=== PATIENT | male | born 1985 | race Caucasian/White ===

== ENCOUNTER 2025-04-19 13:04 | Inpatient (IN) | payer OTHER ==
[2025-04-19 13:30] VITALS: BMI 29.4
[2025-04-19] MEDS ORDERED: ONDANSETRON *ODT* 4 MG TABLET SL PRN (14:31)
[2025-04-19] MEDS ORDERED: IBUPROFEN 400 MG TABLET (FP) PO PRN (14:31)
[2025-04-19] MEDS ORDERED: BISMUTH SUBSALICYLATE 524 MG/30 ML PO PRN (14:31)
[2025-04-19] MEDS ORDERED: BENZONATATE 200 MG CAPSULE PO PRN (14:31)
[2025-04-19] MEDS ORDERED: NALOXONE (NARCAN) HCL 4 MG/0.1 ML SPRAY NS PRN (14:31)
[2025-04-19] MEDS ORDERED: DICYCLOMINE HCL 10 MG CAPSULE PO PRN (14:31)
[2025-04-19] MEDS ORDERED: NICOTINE POLACRILEX 2 MG LOZENGE BC PRN (14:31)
[2025-04-19] MEDS ORDERED: ACETAMINOPHEN 325 MG TABLET (FP) PO PRN (14:31)
[2025-04-19] MEDS ORDERED: guaiFENesin 600 MG TABLET.ER (FP) PO PRN (14:31)
[2025-04-19] MEDS ORDERED: MAG HYDROX/AL HYDROX/SIMETH 30 ML UNIT-DOSE CUP PO PRN (14:31)
[2025-04-19] MEDS ORDERED: NICOTINE POLACRILEX 2 MG GUM BUC PRN (14:31)
[2025-04-19] MEDS ORDERED: BENZOCAINE/MENTHOL (CHLORASEPTIC ) LOZENGE MM PRN (14:31)
[2025-04-19] MEDS ORDERED: MAGNESIUM HYDROX 2400MG/30ML ORAL SUSPENSION 30 ML CUP PO PRN (14:31)
[2025-04-19] MEDS ORDERED: POLYETHYLENE GLYCOL (HEALTHYLAX) 3350 17 GM PACKET PO PRN (14:31)
[2025-04-19] MEDS ORDERED: LOPERAMIDE HCL 2 MG CAPSULE PO PRN (14:31)
[2025-04-19] MEDS: MELATONIN 5 MG TABLETS PO SCH (22:53)
[2025-04-19] MEDS: METHOCARBAMOL 500 MG TABLET PO PRN (22:53)
[2025-04-19] MEDS: hydrOXYzine PAMOATE 25 MG CAPSULE (FP) PO PRN (22:53)
[2025-04-19] MEDS: THIAMINE 100 MG TABLET PO SCH (22:53)
[2025-04-20] MEDS: IBUPROFEN 600 MG TABLET (FP) PO PRN (06:17)
[2025-04-20 08:54] VITALS: BP 117/72; PULSE 61; RESP 16; TEMP 97.7
[2025-04-20 09:41] LABS: MCHC 33.0 g/dl (32.3-36.5); MEAN CELL VOLUME 84.8 fl (79.0-92.2); MEAN PLT VOLUME 9.4 fl (9.4-12.4); RDW 12.5 % (12.0-15.6)
[2025-04-20] MEDS: PRENATAL VITAMINS W/ FOLIC ACID TABLET (FP) PO SCH (09:47)
[2025-04-20 10:11] LABS: GLUCOSE,RANDOM 99.0 mg/dL (74-106); TOT PROT 6.5 g/dl (6.4-8.2)
[2025-04-20 10:12] LABS: CO2 23.0 mmol/L (21-32)
[2025-04-20 10:14] LABS: ALK PHOS 86.0 U/L (40-150)
[2025-04-20 10:17] LABS: CREATININE 0.9 mg/dL (0.55-1.3); SGOT/AST 19.0 U/L (5-34); SGPT/ALT 15.0 U/L (0-55)
[2025-04-20 13:14] LABS: HIV INTERPRETATION NEGATIVE (NEGATIVE)
[2025-04-20] MEDS ORDERED: SUVOREXANT 10 MG TABLET PO PRN (22:00)
== END 2025-04-20 12:04 | disposition left against medical advice (07) | DRG 773 ==
LOC: YASAS 13:04 → Y6N 15:36
PROVIDERS: ADMIT Allergy & Immunology; ATTEND Student in an Organized Health Care Education/Training Program
PROC: HZ2ZZZZ Detoxification Services for Substance Abuse Treatment (ICD-10-PCS; principal; 2025-04-19)
DX: F11.23 Opioid dependence with withdrawal (principal); F14.20 Cocaine dependence, uncomplicated; F12.20 Cannabis dependence, uncomplicated; F17.210 Nicotine dependence, cigarettes, uncomplicated; F19.282 Other psychoactive substance dependence with psychoactive substance-induced sleep disorder; F31.9 Bipolar disorder, unspecified; F90.9 Attention-deficit hyperactivity disorder, unspecified type; B18.2 Chronic viral hepatitis C; Z86.19 Personal history of other infectious and parasitic diseases; F91.8 Other conduct disorders; Z91.199 Patient's noncompliance with other medical treatment and regimen due to unspecified reason
CPT/HCPCS: 36415; 80053; 85027; 86780; 87389; 93005; 93010